=== PATIENT | male | born 1995 | race African-American/Black ===

== ENCOUNTER 2016-10-13 16:32 | Emergency (ER) | payer BC, OTHER ==
[~2016-10-13] VITALS: Ht 188 cm; Wt 70.0 kg
[~2016-10-13 16:32] MED LIST: IMOD2TAB PO; ZOFR4TAB3 SL
[2016-10-13 16:34] VITALS: BP 137/74; PULSE 92; RESP 18; TEMP 98; O2SAT 100
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
[2016-10-13] MEDS ORDERED: LIDOCAINE HCL 1% 50 ML VIAL INFIL ONE (17:15)
[2016-10-13] MEDS ORDERED: TETANUS/DIPHTHERIA TOXOID ADULT 0.5 ML VIAL IM ONE (17:30)
== END 2016-10-13 18:09 | disposition home or self-care (01) ==
LOC: NEPB 16:32
DX: S01.81XA Laceration without foreign body of other part of head, initial encounter (principal); Z23 Encounter for immunization; W50.0XXA Accidental hit or strike by another person, initial encounter; Y93.9 Activity, unspecified; Y92.9 Unspecified place or not applicable; Y99.8 Other external cause status
CPT/HCPCS: 12013; 90471; 90714

== ENCOUNTER 2016-10-31 13:07 | Emergency (ER) | payer OTHER ==
[~2016-10-31] VITALS: Ht 188 cm; Wt 68.2 kg
[2016-10-31 13:09] VITALS: BP 118/70; PULSE 72; RESP 16; TEMP 97.9; O2SAT 99
--- NOTE | 2016-10-31 13:17 | PD ---
HPI Chief Complaint: Wound/Suture/Staple Re-Check Time Seen by Provider: 13:14 Travel History International Travel<30 days: No Contact w/Intl Traveler<30days: No Traveled to known affect area: No History of Present Illness HPI 21-year-old male presents to the emergency department requesting suture removal to his chin. Sutures been in place for approximately a week and half to 2 weeks. Denies drainage, erythema, edema to the laceration site. Denies fever, chills, nausea, vomiting. No known allergies. No modifying factors or associated signs and symptoms. PFSH Social History Alcohol Use: No Tobacco Use: No Substance Use: No Allergies-Medications (Allergen,Severity, Reaction): Coded Allergies: No Known Allergies (Unverified , 10/31/16) Reported Meds & Prescriptions Reported Meds & Active Scripts Active No Active Prescriptions or Reported Medications Review of Systems Except as stated in HPI: all other systems reviewed are Neg Physical Exam Narrative GENERAL: Well-nourished, well-developed male patient, in no acute distress SKIN: Warm and dry. Wound to chin is well approximated and with sutures intact ; without erythema, edema, drainage. No signs of infection. HEAD: Atraumatic. Normocephalic. EYES: Pupils equal and round. No scleral icterus. No injection or drainage. ENT: Mucosa pink and moist. Airway patent. NECK: Trachea midline. CARDIOVASCULAR: Regular rate. RESPIRATORY: No accessory muscle use. GASTROINTESTINAL: Flat. MUSCULOSKELETAL: No obvious deformities. No clubbing. No cyanosis. No edema. NEUROLOGICAL: Awake and alert. Oriented 3. No obvious cranial nerve deficits. Motor grossly within normal limits. Normal speech. PSYCHIATRIC: Appropriate mood and affect; insight and judgment normal. Data Data Last Documented VS Vital Signs Date Time Temp Pulse Resp B/P Pulse Ox O2 Delivery O2 Flow Rate FiO2 10/31/16 13:09 97.9 72 16 118/70 99 Room Air MDM Medical Decision Making Medical Screen Exam Complete: Yes Emergency Medical Condition: Yes Medical Record Reviewed: Yes Differential Diagnosis Encounter for suture removal, wound recheck, medical clearance Narrative Course 21-year-old male presents for suture removal to laceration on his chin. I reviewed the chart and the sutures were placed on October 13. There are no signs of infection to the wound site. The wound is well approximated and sutures intact. Sutures removed. Patient tolerated well. Patient verbalizes understanding and agreement with treatment plan. Patient is medically cleared and stable for discharge. Discussed reasons to return to the emergency department. Instructed patient to follow up with primary care provider. Patient agrees with treatment plan. The patients vital signs are stable and the patient is stable for outpatient follow-up and treatment. Patient discharged home, stable and in no acute distress. Diagnosis Primary Impression: Encounter for removal of sutures Referrals: Primary Care Physician Patient Instructions: General Instructions, Stitches Removal (ED) Departure Forms: Tests/Procedures, Work Release Enter return to work date: Nov 01, 2016 Additional Instructions: Follow-up with primary care provider Med/Other Pt SpecificInfo: No Change to Meds, No Meds Exist/No RX given Scripts No Active Prescriptions or Reported Meds Disposition: DISCHARGE HOME Condition: Stable Macrina Salas Oct 31, 2016 13:17
== END 2016-10-31 13:37 | disposition home or self-care (01) ==
LOC: NEPK 13:07
DX: S01.81XD Laceration without foreign body of other part of head, subsequent encounter (principal); Z48.02 Encounter for removal of sutures; X58.XXXD Exposure to other specified factors, subsequent encounter
CPT/HCPCS: 99281

== ENCOUNTER 2017-01-20 11:48 | Emergency (ER) | payer SELFPAY ==
[2017-01-20 11:49] VITALS: BP 110/54; PULSE 66; RESP 15; TEMP 98.4; O2SAT 98
--- NOTE | 2017-01-20 13:09 | PD ---
HPI Chief Complaint: Eye Problems/Injury Time Seen by Provider: 13:07 Travel History International Travel<30 days: No Contact w/Intl Traveler<30days: No Traveled to known affect area: No History of Present Illness HPI 21-year-old male presents to the emergency department for evaluation of right eye irritation, drainage that started 2 days ago. He denies any pain. He states his vision slightly blurry. Patient is wearing glasses. He states that he does wear contacts as well. Patient denies any trauma to the eye. He denies any foreign body sensation. Patient states he has had bacterial conjunctivitis in the past and this feels similar. Patient denies any chronic eye problems. He has no chronic medical problems and takes no medications. Patient denies any other complaints or symptoms at this time [facility] Social History Alcohol Use: No Tobacco Use: No Substance Use: No Allergies-Medications (Allergen,Severity, Reaction): Coded Allergies: No Known Allergies (Unverified , 10/31/16) Reported Meds & Prescriptions Reported Meds & Active Scripts Active No Active Prescriptions or Reported Medications Review of Systems Except as stated in HPI: all other systems reviewed are Neg Physical Exam Narrative GENERAL: Well-nourished, well-developed male patient, ambulatory. Afebrile. SKIN: Focused skin assessment warm/dry. HEAD: Normocephalic. Atraumatic. EYES: No scleral icterus. Right sclera is Erythematous. PERRLA. EOM intact. No photophobia. Fluorescein examination shows no uptake of dye. No hyphema. NECK: Supple, trachea midline. No JVD or lymphadenopathy. CARDIOVASCULAR: Regular rate and rhythm without murmurs, gallops, or rubs. RESPIRATORY: Breath sounds equal bilaterally. No accessory muscle use. Lungs sounds are clear to auscultation. GASTROINTESTINAL: Abdomen soft, non-tender, nondistended. MUSCULOSKELETAL: No cyanosis, or edema. BACK: Nontender without obvious deformity. No CVA tenderness. Data Data Last Documented VS Vital Signs Date Time Temp Pulse Resp B/P Pulse Ox O2 Delivery O2 Flow Rate FiO2 01/20/17 11:49 98.4 66 15 110/54 98 Orders Proparacaine 0.5% Opth Soln (Alcaine 0.5 (01/20/17 13:15) MDM Medical Decision Making Medical Screen Exam Complete: Yes Emergency Medical Condition: Yes Medical Record Reviewed: Yes Differential Diagnosis Bacteria conjunctivitis versus viral conjunctivitis versus corneal abrasion versus corneal ulcer versus iritis versus foreign body Narrative Course 21-year-old male presents to the emergency department for evaluation of right eye erythema, drainage that started 2 days ago. Patient appears well on exam. Fluorescein examination is negative. Visual acuity is 20/25 bilaterally. Patient will be discharged with a prescription for Ciloxan. He is encouraged to follow up aircraft pilot if symptoms do not improve or worsen. He verbalizes agreement and understanding. The patient was discharged in stable condition with instructions, including return instructions and follow up instructions. Diagnosis Primary Impression: Bacterial conjunctivitis of right eye Referrals: [employer] Analyst call for appointment Patient Instructions: Conjunctivitis (ED), General Instructions Additional Instructions: Use antibiotic eyedrops as directed. Cool compresses. Follow-up with an aircraft pilot. Return to the emergency department for any acute worsening of symptoms. Med/Other Pt SpecificInfo: Prescription(s) given Scripts Ciprofloxacin Opth Drops (Ciloxan Opth Drops)0.3% Soln2 Drop RIGHT EYE Q4H #1 BOTTLE Ref 0 Prov:Celina Reece 01/20/17 Disposition: 01 DISCHARGE HOME Condition: Stable Celina Reece Jan 20, 2017 13:09
[2017-01-20] MEDS ORDERED: PROPARACAINE HCL 0.5% OPHT SOLN 15 ML BTL EACH EYE ONE (13:15)
[2017-01-20] MEDS ORDERED: CILO0.3S RIGHT EYE (13:29)
== END 2017-01-20 13:43 | disposition home or self-care (01) ==
LOC: NEPE 11:48
DX: H10.89 Other conjunctivitis (principal)
CPT/HCPCS: 99283

== ENCOUNTER 2017-01-24 05:17 | Emergency (ER) | payer SELFPAY ==
[~2017-01-24] VITALS: Ht 188 cm; Wt 67.0 kg
[~2017-01-24 05:17] MED LIST changes: +CILO0.3S RIGHT EYE; -IMOD2TAB PO; -ZOFR4TAB3 SL
[2017-01-24 05:19] VITALS: BP 116/78; PULSE 59; RESP 14; TEMP 97.7; O2SAT 99
[2017-01-24] MEDS ORDERED: CILO0.3S RIGHT EYE (05:26)
--- NOTE | 2017-01-24 05:29 | PD ---
HPI Chief Complaint: Medication Refill Request Time Seen by Provider: 05:27 Travel History International Travel<30 days: No Contact w/Intl Traveler<30days: No Traveled to known affect area: No History of Present Illness HPI 21-year-old black male presents emergency department requesting a refill of his eye drops. He states he was here in the ER 2 days ago was diagnosed with conjunctivitis in his right eye. He had been using Cipro eyedrops but lost the bottle today. He states that the symptoms are improving but have not resolved. No other complaint PFS Past Medical History Medical History: Denies Significant Hx Past Surgical History Surgical History: No Previous Surgery Social History Alcohol Use: No Tobacco Use: No Substance Use: No Allergies-Medications (Allergen,Severity, Reaction): Coded Allergies: No Known Allergies (Unverified , 01/24/17) Reported Meds & Prescriptions Reported Meds & Active Scripts Active Ciloxan Opth Drops (Ciprofloxacin HCl) 0.3% Soln 2 Drop RIGHT EYE Q4H Review of Systems Except as stated in HPI: all other systems reviewed are Neg Eyes: Positive: Drainage, Redness, Visual changes Physical Exam Narrative GENERAL: Well-developed, well-nourished in no acute distress. Nontoxic appearing. HEAD: Normocephalic, atraumatic. EYES: Pupils equal round and reactive. Extraocular motions intact. No scleral icterus. Mild injection and some clear drainage. ENT: TMs clear without erythema. The external auditory canals clear. Nose: clear . Posterior pharynx is pink and moist. No tonsillar edema or exudate. Uvula midline. Airway patent. NECK: Trachea midline.Supple, nontender, moves head freely. No central bony tenderness or spasm. CARDIOVASCULAR: Regular rate and rhythm without murmurs, gallops, or rubs. RESPIRATORY: Clear to auscultation. Breath sounds equal bilaterally. No wheezes , rales, or rhonchi. GASTROINTESTINAL: Abdomen soft, non-tender, nondistended. No hepato-splenomegaly , or palpable masses. No guarding. EXTREMITIES: No clubbing, cyanosis, or edema. No joint tenderness, effusion, or edema noted. BACK: Nontender without deformity or crepitance. No flank tenderness. Data Data Last Documented VS Vital Signs Date Time Temp Pulse Resp B/P Pulse Ox O2 Delivery O2 Flow Rate FiO2 01/24/17 05:19 97.7 59 14 116/78 99 Room Air MDM Medical Decision Making Medical Screen Exam Complete: Yes Emergency Medical Condition: Yes Medical Record Reviewed: Yes Differential Diagnosis MDM: High Differential diagnoses: Acute conjunctivitis (bacterial, viral, allergic, traumatic), glaucoma, iritis, traumatic globe injury, foreign body, corneal abrasion, corneal ulcer, diabetic retinopathy, photokeratitis, herpes keratitis , CMV retinitis Narrative Course Conjunctivitis Diagnosis Primary Impression: Bacterial conjunctivitis of right eye Patient Instructions: General Instructions Additional Instructions: Rest. Wash eyelashes with baby shampoo 3 times daily. Warm compresses. Medications as directed. Followup with an eye doctor in one week. Follow-up with a medical doctor one week. Return to the ER if any problems. Med/Other Pt SpecificInfo: Prescription(s) given Scripts Ciprofloxacin Opth Drops (Ciloxan Opth Drops)0.3% Soln2 Drop RIGHT EYE Q4H #1 BOTTLE Ref 0 Prov:Patrizia Merrill DO 01/24/17 Disposition: 01 DISCHARGE HOME Condition: Stable Malcolm Allen Jan 24, 2017 05:29
== END 2017-01-24 05:48 | disposition home or self-care (01) ==
LOC: NEPD 05:17
DX: H10.9 Unspecified conjunctivitis (principal)
CPT/HCPCS: 99283